=== PATIENT | male | born 1975 | race Caucasian/White ===

== ENCOUNTER 2017-02-17 15:52 | Emergency (ER) | payer BC ==
[~2017-02-17] VITALS: Ht 182.9 cm; Wt 97.0 kg
[~2017-02-17 15:52] MED LIST: ALBU1AER9 INH; CLC100X PO; IBUP-1428 PO; LURA1TAB3 PO; MOME50SP5 NAE; OXYC5TAB PO
[2017-02-17 15:53] VITALS: TEMP 36.7; Ht 182.9 cm; Wt 97.0 kg
[2017-02-17] MEDS ORDERED: MOME6000 NAE (16:04)
[2017-02-17] MEDS ORDERED: VNTHFA/IN INH (16:04)
[2017-02-17] MEDS ORDERED: PROPARACAINE HCL 0.5% OP SOLN 15 ML BTL OP STA (16:04)
[2017-02-17] MEDS ORDERED: DIPHTHERIA/TETANUS/PERTUSSIS 0.5 ML SYR/VIAL IM. ONE (16:15)
[2017-02-17] MEDS ORDERED: CIPROFLOXACIN HCL 0.3% OP SOLN 2.5 ML BTL OP STA (16:37)
[2017-02-17 16:45] VITALS: BP 140/78; PULSE 72; O2SAT 98
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
== END 2017-02-17 16:46 | disposition home or self-care (01) ==
LOC: C.EDB 15:52 → C.EDD 16:46
DX: S05.01XA Injury of conjunctiva and corneal abrasion without foreign body, right eye, initial encounter (principal); X58.XXXA Exposure to other specified factors, initial encounter; Y92.89 Other specified places as the place of occurrence of the external cause; Y93.89 Activity, other specified; R03.0 Elevated blood-pressure reading, without diagnosis of hypertension; Z83.3 Family history of diabetes mellitus; Z82.49 Family history of ischemic heart disease and other diseases of the circulatory system; Z83.6 Family history of other diseases of the respiratory system

== ENCOUNTER → 2017-02-20 | Outpatient (CLI) | payer BC ==
[~2017-02-20] MED LIST changes: -CLC100X PO; -IBUP-1428 PO; -MOME50SP5 NAE; +MOME6000 NAE; -OXYC5TAB PO; +VNTHFA/IN INH
[2017-02-20 10:00] LABS: CHOLESTEROL/HDL RATIO 3.9
== END | disposition home or self-care (01) ==
LOC: C.LAB 07:40
PROVIDERS: ATTEND Psychiatry & Neurology Psychiatry
DX: F31.9 Bipolar disorder, unspecified (principal); F41.1 Generalized anxiety disorder

== ENCOUNTER → 2017-07-26 | Outpatient (CLI) | payer BC ==
[2017-07-26 09:24] LABS: BASO % 0.4 %; BASO ABS # 0.02 K/uL (0-0.2); EOS % 2.3 %; EOS ABS # 0.11 K/uL (0-0.5); HEMATOCRIT 44.5 % (42-52); HEMOGLOBIN 15.5 g/dL (14.0-18.0); LYMPH % 45.6 %; MEAN CELL VOLUME 86.9 fL (80-100); MEAN CORPUSCULAR HEMOGLOBIN 30.3 pg (25-34); MEAN CORPUSCULAR HGB CONC 34.8 g/dl (32-36); MEAN PLATELET VOLUME 10.9 fL (7.4-10.4); MONO ABS # 0.48 K/uL (0.11-0.59); NEUT % 41.7 %; NEUT ABS # 2.01 K/uL (1.4-6.5); PLATELET COUNT 183 K/uL (130-400); RED CELL DISTRIBUTION WIDTH CV 12.8 % (11.5-14.5); RED CELL DISTRIBUTION WIDTH SD 41.1 fL (36.4-46.3); WHITE BLOOD COUNT 4.82 K/uL (4.8-10.8)
== END | disposition home or self-care (01) ==
LOC: C.LAB 07:49
PROVIDERS: ATTEND Internal Medicine
DX: J45.909 Unspecified asthma, uncomplicated (principal)